=== PATIENT | male | born 1985 | race Caucasian/White ===

== ENCOUNTER 2019-04-10 15:45 | Emergency (ER) | payer OTHER ==
[2019-04-10] MEDS ORDERED: Ibuprofen 400 MG Tab PO ONE (17:05)
[2019-04-10] MEDS ORDERED: Acetaminophen Soln 650 MG/20.3 ML UD Cup PO ONE (17:05)
[2019-04-10] MEDS ORDERED: Lactated Ringers 1,000 ML IV ONE (17:07)
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
[2019-04-10] MEDS ORDERED: Sodium Chloride 0.9% 10 ML Syringe FLUSH ONE (18:03)
[2019-04-10] MEDS ORDERED: Sodium Chloride 0.9% 80 ML IV ONE (18:03)
[2019-04-10] MEDS ORDERED: Iopamidol 755 Mg/ML 100 ML Bottle IV SCH (18:15)
--- NOTE | 2019-04-10 18:48 | CRLCT ---
INDICATION: Right-sided pleuritic chest pain. TECHNIQUE: CT chest pulmonary angiogram acquired with 100 mL of Isovue 370 IV contrast. COMPARISON: None FINDINGS: Cardiovascular structures: No evidence of pulmonary embolus. Thoracic aorta is normal in caliber. Heart size is within normal limits. Mediastinum and yinka: No mass or adenopathy. Lungs: No pneumothorax. Central airways are patent. There is mild motion artifact. Lungs are otherwise clear. Pleura and pericardium: No effusions. Chest wall and axilla: No mass or adenopathy. Bones: No significant findings. Upper abdomen: Unremarkable. IMPRESSION: No evidence of pulmonary embolus or other acute abnormality in the thorax. Dictated by Zev Doyle MD @ 04/10/2019 6:47:22 PM Please note that all CT scans at this facility use dose modulation, iterative reconstruction, and/or weight-based dosing when appropriate to reduce radiation dose to as low as reasonably achievable. Dictated by: Zev Doyle MD @ 04/10/2019 18:47:31 (Electronically Signed)
== END 2019-04-10 19:28 | disposition home or self-care (01) ==
LOC: JP.ED 15:45
DX: R07.89 Other chest pain (principal); J45.909 Unspecified asthma, uncomplicated; F17.210 Nicotine dependence, cigarettes, uncomplicated
CPT/HCPCS: 36415; 71275; 80048; 85027; 96360; 99284; A9270; J7030; J7120; Q9967